=== PATIENT | male | born 1965 | race Caucasian/White ===

== ENCOUNTER 2019-08-12 13:30 | Outpatient (RCR) | payer BC | END 2019-10-05 | disposition still patient (30) | LOC: PT | DX: M25.561 Pain in right knee (principal); M25.562 Pain in left knee; Z96.653 Presence of artificial knee joint, bilateral ==

== ENCOUNTER → 2023-12-19 | Day surgery (SDC) | payer OTHER ==
[~2023-12-19] MED LIST: Balanced Salt Ophth Irrig 15 ML BOTTLE *BULK OP SCH; Cyclopentolate 2% Ophth Soln 1 BOTTLE *BULK OP SCH; EPINEPHrine 1 MG/ML (1:1000) 1 ML AMP IR SCH; Ketorolac 0.5% Ophth Soln 5 ML Bottle *BULK OP SCH; Midazolam 2 MG/2 ML VIAL IV ONE; Phenylephrine 10% Ophth Soln 5 ML BOTTLE *BULK OP SCH; Polymyxin B Sulfate/Trimethoprim Ophth Soln 10 ML BOTTLE *BULK OP SCH; Povidone Iodine 5% Ophth Soln 30 ML BOTTLE *BULK OP SCH; Proparacaine 0.5% Ophth Soln 15 ML BOTTLE *BULK OP SCH; Tropicamide 1% Ophth Soln Bottle *BULK OP SCH; Trypan Blue 0.06% Ophth Soln 0.5 ML SYRINGE IO ONE
== END | disposition home or self-care (01) ==
LOC: MSO 08-22 10:50
DX: H25.813 Combined forms of age-related cataract, bilateral (principal); G47.33 Obstructive sleep apnea (adult) (pediatric); C61 Malignant neoplasm of prostate
CPT/HCPCS: 00142; J0171; J2250; V2632

== ENCOUNTER → 2024-02-14 | Outpatient (CLI) | payer OTHER ==
[2024-02-14 14:55] LABS: BASO # 0.03 K/mm3 (0.02-0.10); EOS # 0.18 K/mm3 (0.04-0.40); EOS % 2.9 % (0.0-4.0); HEMATOCRIT 44.8 % (42.0-52.0); HEMOGLOBIN 14.9 g/dL (13.5-18.0); LYMPH# 1.86 K/mm3 (1.50-4.00); MEAN CELL VOLUME 87 fl (78-100); MEAN CORPUSCULAR HEMOGLOBIN 29 pg (27-31); MEAN CORPUSCULAR HGB CONC 33 g/dL (33-37); MEAN PLATELET VOLUME 10.4 fl (7.4-10.4); MONO # 0.45 K/mm3 (0.20-0.80); NEU # 3.68 K/mm3 (1.40-6.50); PLATELET COUNT 188 K/mm3 (130-400); RED BLOOD COUNT 5.15 M/mm3 (4.20-5.60); RED CELL DISTRIBUTION WIDTH 13.2 % (11.5-14.5); WHITE BLOOD COUNT 6.2 K/mm3 (4.8-10.8)
[2024-02-14 15:00] LABS: ALBUMIN 4.2 g/dL (3.5-5.0)
[2024-02-14 15:02] LABS: CALCIUM 9.3 mg/dL (8.3-10.5)
[2024-02-14 15:03] LABS: TOTAL PROTEIN 6.5 g/dL (6.4-8.3)
[2024-02-14 15:05] LABS: TOTAL BILIRUBIN 0.6 mg/dL (0.2-1.2)
== END ==
LOC: LAB 14:40
PROVIDERS: Nurse Practitioner
DX: R94.39 Abnormal result of other cardiovascular function study (principal)

== ENCOUNTER → 2024-03-20 | Day surgery (SDC) | payer OTHER ==
[~2024-03-20] MED LIST changes: -EPINEPHrine 1 MG/ML (1:1000) 1 ML AMP IR SCH; +EPINEPHrine 1 MG/ML (1:1000) 1 ML AMP IV SCH; -Trypan Blue 0.06% Ophth Soln 0.5 ML SYRINGE IO ONE; +Trypan Blue 0.06% Ophth Soln 0.5 ML SYRINGE IO SCH
== END ==
LOC: MSO 03-06 22:04
DX: H25.811 Combined forms of age-related cataract, right eye (principal); G47.33 Obstructive sleep apnea (adult) (pediatric)
CPT/HCPCS: 00142; J0171; J2250; V2632

== ENCOUNTER → 2024-05-08 | Outpatient (CLI) | payer OTHER ==
[2024-05-08 09:28] LABS: BASO # 0.03 K/mm3 (0.02-0.10); EOS # 0.16 K/mm3 (0.04-0.40); EOS % 2.4 % (0.0-4.0); HEMATOCRIT 47.4 % (42.0-52.0); HEMOGLOBIN 15.8 g/dL (13.5-18.0); MEAN CELL VOLUME 86 fl (78-100); MEAN CORPUSCULAR HEMOGLOBIN 29 pg (27-31); MEAN CORPUSCULAR HGB CONC 33 g/dL (33-37); MEAN PLATELET VOLUME 10.7 fl (7.4-10.4); MONO # 0.51 K/mm3 (0.20-0.80); NEU # 4.27 K/mm3 (1.40-6.50); PLATELET COUNT 187 K/mm3 (130-400); RED BLOOD COUNT 5.52 M/mm3 (4.20-5.60); RED CELL DISTRIBUTION WIDTH 13.2 % (11.5-14.5); WHITE BLOOD COUNT 6.6 K/mm3 (4.8-10.8)
== END ==
LOC: LAB 09:16
PROVIDERS: Radiology Radiation Oncology
DX: C61 Malignant neoplasm of prostate (principal)

== ENCOUNTER → 2024-05-27 | Outpatient (CLI) | payer OTHER ==
[2024-05-27 09:23] LABS: BASO # 0.03 K/mm3 (0.02-0.10); EOS # 0.18 K/mm3 (0.04-0.40); EOS % 3.5 % (0.0-4.0); HEMATOCRIT 45.3 % (42.0-52.0); HEMOGLOBIN 15.1 g/dL (13.5-18.0); LYMPH# 1.12 K/mm3 (1.50-4.00); MEAN CELL VOLUME 86 fl (78-100); MEAN CORPUSCULAR HEMOGLOBIN 29 pg (27-31); MEAN CORPUSCULAR HGB CONC 33 g/dL (33-37); MEAN PLATELET VOLUME 10.1 fl (7.4-10.4); MONO # 0.42 K/mm3 (0.20-0.80); NEU # 3.41 K/mm3 (1.40-6.50); PLATELET COUNT 182 K/mm3 (130-400); RED BLOOD COUNT 5.26 M/mm3 (4.20-5.60); RED CELL DISTRIBUTION WIDTH 13.6 % (11.5-14.5); WHITE BLOOD COUNT 5.2 K/mm3 (4.8-10.8)
== END ==
LOC: LAB 09:12
PROVIDERS: Radiology Radiation Oncology
DX: C61 Malignant neoplasm of prostate (principal)

== ENCOUNTER → 2024-06-10 | Outpatient (CLI) | payer OTHER ==
[2024-06-10 10:06] LABS: BASO # 0.03 K/mm3 (0.02-0.10); EOS # 0.13 K/mm3 (0.04-0.40); EOS % 2.1 % (0.0-4.0); HEMATOCRIT 47.3 % (42.0-52.0); HEMOGLOBIN 15.4 g/dL (13.5-18.0); LYMPH# 1.38 K/mm3 (1.50-4.00); MEAN CELL VOLUME 88 fl (78-100); MEAN CORPUSCULAR HEMOGLOBIN 29 pg (27-31); MEAN CORPUSCULAR HGB CONC 33 g/dL (33-37); MEAN PLATELET VOLUME 10.2 fl (7.4-10.4); NEU # 4.01 K/mm3 (1.40-6.50); PLATELET COUNT 198 K/mm3 (130-400); RED BLOOD COUNT 5.36 M/mm3 (4.20-5.60); RED CELL DISTRIBUTION WIDTH 14.4 % (11.5-14.5); WHITE BLOOD COUNT 6.2 K/mm3 (4.8-10.8)
== END ==
LOC: LAB 09:25
PROVIDERS: Radiology Radiation Oncology
DX: C61 Malignant neoplasm of prostate (principal)